=== PATIENT | female | born 1990 | race Caucasian/White ===

== ENCOUNTER 2020-05-18 03:52 | Emergency (ER) | payer SELFPAY ==
[~2020-05-18] VITALS: Ht 170.2 cm; Wt 132.0 kg
[2020-05-18] MEDS ORDERED: AMLODIPINE BESYL5 MG PO ×2 (04:08→04:19)
[2020-05-18] MEDS ORDERED: BACTRIM DS TAB1 EACH PO (04:19)
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
== END 2020-05-18 04:36 | disposition home or self-care (01) ==
LOC: ED 03:52
DX: L03.811 Cellulitis of head [any part, except face] (principal); I10 Essential (primary) hypertension; F17.200 Nicotine dependence, unspecified, uncomplicated; Z88.1 Allergy status to other antibiotic agents; Z79.899 Other long term (current) drug therapy
CPT/HCPCS: 99283